=== PATIENT | male | born 1985 | race African-American/Black ===

== ENCOUNTER 2019-06-18 15:13 | Emergency (ER) | payer OTHER ==
[~2019-06-18] VITALS: Ht 182.9 cm; Wt 95.7 kg
[2019-06-18 15:27] VITALS: BP 146/90
--- NOTE | 2019-06-18 15:31 | NUR ---
FLU SWAP SAMPLE OBTAINED UPON TRIAGE.
--- NOTE | 2019-06-18 15:34 | NUR ---
PT AMBULATED TO BED 4 WITH STEADY GAIT.
--- NOTE | 2019-06-18 15:46 | NUR ---
34 Y/M PRESENTS TO ED FOR FEVER, CHILLS, AND DRY COUGH THAT STARTED LAST NIGHT AT 1700. PT ALSO REPORTS LOSS OF APPETITE AND NAUSEA. PT CO LYNCH 8/10 NAUSEA AND LIGHT SENSITIVITY. NEGATIVE FOR SICK CONTACTS AT HOME. RR EVEN AND UNLABORED. EXPIRATORY RHONCI AUSCULTATED IN L UPPER LUNG. PT SELF MEDICATED WITH IBUPROFEN LAST NIGHT PMH- CHILDHOOD ASTHMA NKDA
--- NOTE | 2019-06-18 15:55 | NUR ---
DR VASQUEZ EXAMINING PT
[2019-06-18 16:34] VITALS: BP 146/90
--- NOTE | 2019-06-18 16:34 | NUR ---
Patient discharged with v/s stable. Written and verbal after care instructions given and explained. Patient alert, oriented and verbalized understanding of instructions. Ambulatory with steady gait. All questions addressed prior to discharge. ID band removed. Patient advised to follow up with PMD. Rx of TAMIFLU, MOTRIN, PROMETHAZINE given. Patient educated on indication of medication including possible reaction and side effects. Opportunity to ask questions provided and answered.
== END 2019-06-18 16:34 | disposition home or self-care (01) ==
LOC: MED 15:13
DX: J10.1 Influenza due to other identified influenza virus with other respiratory manifestations (principal); R03.0 Elevated blood-pressure reading, without diagnosis of hypertension
CPT/HCPCS: 87804; 99283